=== PATIENT | male | born 1975 | race Caucasian/White ===

== ENCOUNTER 2021-11-03 20:33 | Emergency (ER) | payer MEDICAID ==
[~2021-11-03] VITALS: Ht 185.4 cm; Wt 103.0 kg
[2021-11-03 20:39] VITALS: BP 139/87
== END 2021-11-03 22:37 | disposition left against medical advice (07) ==
LOC: ER 20:33
DX: Z53.21 Procedure and treatment not carried out due to patient leaving prior to being seen by health care provider (principal)